=== PATIENT | female | born 2000 | race African-American/Black ===

== ENCOUNTER 2021-06-02 11:18 | Emergency (ER) | payer SELFPAY ==
[~2021-06-02] VITALS: Ht 165.1 cm; Wt 106.8 kg
[2021-06-02 12:19] VITALS: TEMP 98.6
[2021-06-02 12:58] LABS: COLLECTION METHOD CLEAN CATCH
[2021-06-02 13:14] LABS: MUCOUS Present (NOT PRESENT); SQUAMOUS EPITHELIAL 0-2 /hpf (0-10); URINE BACTERIA Rare /hpf (NONE SEEN)
[2021-06-02 13:18] LABS: URINE APPEARANCE Clear (CLEAR/HAZY); URINE COLOR Yellow (YELLOW)
[2021-06-02 13:19] LABS: PH 5 (5-8); URINE BILIRUBIN Negative (NEGATIVE); URINE BLOOD 1+ (NEGATIVE); URINE GLUCOSE Negative (NEGATIVE); URINE KETONE Negative (NEGATIVE); URINE LEUKOCYTE ESTERASE Negative (NEGATIVE); URINE NITRATE Negative (NEGATIVE); URINE PROTEIN(semi-quant) 1+ (NEGATIVE); URINE UROBILINOGEN Negative (NEGATIVE)
[2021-06-02 13:38] LABS: BASO % 0.2 % (0.0-2.0); EOS # 0.1 K/mm3 (0.0-0.7); EOS % 1.1 % (0.0-4.0); GRAN # 3.9 K/mm3 (1.4-6.5); GRAN % 74.7 % (42.2-75.2); HEMATOCRIT 41.9 % (37.0-47.0); HEMOGLOBIN 13.7 g/dl (12.5-16.0); LYMPH % 18.9 % (20.0-51.0); MEAN CELL VOLUME 91 fl (80.0-100.0); MEAN CORPUSCULAR HEMOGLOBIN 30 pg (27-31); MEAN CORPUSCULAR HGB CONC 33 g/dl (33.0-37.0); MEAN PLATELET VOLUME 10.8 fl (7.4-10.4); MONO # 0.3 K/mm3 (0.1-0.6); MONO % 4.7 % (1.7-9.3); PLATELET COUNT 326 K/mm3 (130-400); REDCELL DISTRIBUTION WIDTH-CV 11.7 % (11.5-14.5)
[2021-06-02 13:58] LABS: ALANINE AMINOTRANSFERASE 22 U/L (0-55); ALBUMIN 4.8 gm/dL (3.5-5.0); ALKALINE PHOSPHATASE 124 U/L (40-150); ANION GAP 9 mmol/L (7-16); AST,SGOT 19 U/L (5-34); BILIRUBIN,TOTAL < 0.5 mg/dL (0.2-1.2); BLOOD UREA NITROGEN 8 mg/dL (7-19); CALCIUM 9.6 mg/dL (8.4-10.2); CARBON DIOXIDE 21 mmol/L (22-29); CHLORIDE 107 mmol/L (98-107); CREATININE, serum 0.72 mg/dL (0.57-1.11); GLUCOSE 92 mg/dL (70-99); LIPASE 29 U/L (8-78); POTASSIUM 4.1 mmol/L (3.5-4.5); SODIUM 137 mmol/L (136-145); TOTAL PROTEIN 8.4 gm/dL (6.2-8.1)
[2021-06-02 13:59] LABS: C-REACTIVE PROTEIN < 0.02 mg/dL (0.00-0.50)
[2021-06-02] MEDS ORDERED: ZOFRAN ODT4 MG PO (15:29)
[2021-06-02 15:41] VITALS: BP 120/70; PULSE 58
== END 2021-06-02 15:41 | disposition home or self-care (01) ==
LOC: COL.ER 11:18
PROVIDERS: Emergency Medicine; Physician Assistant
DX: R10.31 Right lower quadrant pain (principal); R19.7 Diarrhea, unspecified; R11.2 Nausea with vomiting, unspecified; J45.909 Unspecified asthma, uncomplicated; F17.210 Nicotine dependence, cigarettes, uncomplicated; Z20.822 Contact with and (suspected) exposure to COVID-19; Z32.02 Encounter for pregnancy test, result negative
CPT/HCPCS: J2405; J7030; Q9967

== ENCOUNTER 2022-01-11 15:22 | Emergency (ER) | payer MEDICAID ==
[~2022-01-11] VITALS: Ht 165.1 cm; Wt 94.1 kg
[~2022-01-11 15:22] MED LIST: ZOFRAN ODT4 MG PO
[2022-01-11 15:27] VITALS: TEMP 98.1
[2022-01-11 15:49] LABS: BASO % 0.2 % (0.0-2.0); EOS # 0.2 K/mm3 (0.0-0.7); EOS % 3.4 % (0.0-4.0); GRAN # 2.2 K/mm3 (1.4-6.5); GRAN % 46.4 % (42.2-75.2); HEMATOCRIT 38.6 % (37.0-47.0); LYMPH # 2.2 K/mm3 (1.2-3.4); LYMPH % 45.6 % (20.0-51.0); MEAN CELL VOLUME 89 fl (80.0-100.0); MEAN CORPUSCULAR HEMOGLOBIN 30 pg (27-31); MEAN CORPUSCULAR HGB CONC 34 g/dl (33.0-37.0); MEAN PLATELET VOLUME 9.9 fl (7.4-10.4); MONO # 0.2 K/mm3 (0.1-0.6); MONO % 4.4 % (1.7-9.3); PLATELET COUNT 288 K/mm3 (130-400); RED BLOOD COUNT 4.33 M/mm3 (4.10-5.30); REDCELL DISTRIBUTION WIDTH-CV 11.5 % (11.5-14.5); RETIC # 0.04 M/mm3 (0.02-0.16); RETIC % 0.8 % (0.5-3.52)
[2022-01-11 16:06] LABS: ALBUMIN 4.1 gm/dL (3.5-5.0); BILIRUBIN,TOTAL 0.5 mg/dL (0.2-1.2); CALCIUM 9.2 mg/dL (8.4-10.2); CREATININE, serum 0.73 mg/dL (0.57-1.11); POTASSIUM 3.6 mmol/L (3.5-4.5); TOTAL PROTEIN 7.8 gm/dL (6.2-8.1)
[2022-01-11 16:12] LABS: TROPONIN-I 0.014 ng/mL (0.00-0.033)
[2022-01-11 18:15] VITALS: BP 117/84; PULSE 80
== END 2022-01-11 18:20 | disposition home or self-care (01) ==
LOC: COL.ER 15:22
PROVIDERS: Nurse Practitioner
DX: R07.89 Other chest pain (principal)
CPT/HCPCS: J1200; Q9967

== ENCOUNTER 2022-07-17 11:40 | Emergency (ER) | payer MEDICAID ==
[~2022-07-17] VITALS: Ht 165.1 cm; Wt 102.0 kg
[2022-07-17 11:54] VITALS: TEMP 98.3
[2022-07-17 12:23] LABS: BASO % 0.2 % (0.0-2.0); EOS # 0.2 K/mm3 (0.0-0.7); EOS % 5.3 % (0.0-4.0); GRAN # 2.3 K/mm3 (1.4-6.5); GRAN % 52.4 % (42.2-75.2); HEMATOCRIT 39.7 % (37.0-47.0); HEMOGLOBIN 13.5 g/dl (12.5-16.0); LYMPH # 1.6 K/mm3 (1.2-3.4); LYMPH % 36.8 % (20.0-51.0); MEAN CELL VOLUME 89 fl (80.0-100.0); MEAN CORPUSCULAR HEMOGLOBIN 30 pg (27-31); MEAN CORPUSCULAR HGB CONC 34 g/dl (33.0-37.0); MEAN PLATELET VOLUME 10.3 fl (7.4-10.4); MONO # 0.2 K/mm3 (0.1-0.6); MONO % 5.3 % (1.7-9.3); PLATELET COUNT 301 K/mm3 (130-400); RED BLOOD COUNT 4.45 M/mm3 (4.10-5.30); REDCELL DISTRIBUTION WIDTH-CV 11.2 % (11.5-14.5)
[2022-07-17 12:39] LABS: ALBUMIN 4.3 gm/dL (3.5-5.0); BILIRUBIN,TOTAL 0.4 mg/dL (0.2-1.2); CALCIUM 9.1 mg/dL (8.4-10.2); CREATININE, serum 0.73 mg/dL (0.57-1.11); POTASSIUM 3.8 mmol/L (3.5-4.5)
[2022-07-17 13:39] LABS: COLLECTION METHOD CLEAN CATCH
[2022-07-17 13:55] LABS: MUCOUS Present (NOT PRESENT); URINE APPEARANCE Hazy (CLEAR/HAZY); URINE BACTERIA Rare /hpf (NONE SEEN); URINE BLOOD 2+ (NEGATIVE); URINE COLOR Yellow (YELLOW); URINE GLUCOSE Negative (NEGATIVE); URINE KETONE Negative (NEGATIVE); URINE NITRATE Negative (NEGATIVE); URINE PROTEIN(semi-quant) 1+ (NEGATIVE); URINE RBC 20-50 /hpf (0-2); URINE UROBILINOGEN 0.2 E.U/dL (0.2-1.0)
[2022-07-17] MEDS ORDERED: ZOFRAN ODT4 MG PO (14:08)
[2022-07-17 14:37] VITALS: BP 114/87; PULSE 80
[2022-07-17 14:51] LABS: CLOSTRIDIUM DIFF A/B NEG
== END 2022-07-17 14:37 | disposition home or self-care (01) ==
LOC: COL.ER 11:40
PROVIDERS: Physician Assistant
DX: R11.2 Nausea with vomiting, unspecified (principal); R19.7 Diarrhea, unspecified; Z28.310 Unvaccinated for COVID-19
CPT/HCPCS: J2405; J7030

== ENCOUNTER 2023-02-12 19:34 | Emergency (ER) | payer MEDICAID ==
[~2023-02-12] VITALS: Ht 165.1 cm; Wt 90.9 kg
[~2023-02-12 19:34] MED LIST changes: +PRENATAL TABLET PO
[2023-02-12 19:39] VITALS: TEMP 98.4
[2023-02-12 20:26] LABS: BASO % 0.2 % (0.0-2.0); EOS # 0.1 K/mm3 (0.0-0.7); EOS % 1.4 % (0.0-4.0); GRAN # 4.7 K/mm3 (1.4-6.5); GRAN % 72.5 % (42.2-75.2); HEMOGLOBIN 11.4 g/dl (12.5-16.0); LYMPH # 1.4 K/mm3 (1.2-3.4); MEAN CELL VOLUME 93 fl (80.0-100.0); MEAN CORPUSCULAR HEMOGLOBIN 32 pg (27-31); MEAN CORPUSCULAR HGB CONC 34 g/dl (33.0-37.0); MEAN PLATELET VOLUME 10.9 fl (7.4-10.4); MONO # 0.3 K/mm3 (0.1-0.6); MONO % 4.6 % (1.7-9.3); PLATELET COUNT 289 K/mm3 (130-400); REDCELL DISTRIBUTION WIDTH-CV 12.1 % (11.5-14.5)
[2023-02-12 20:30] LABS: HEMATOCRIT 33.3 % (37.0-47.0)
[2023-02-12 20:41] LABS: ALBUMIN 3.7 gm/dL (3.5-5.0); BILIRUBIN,TOTAL 0.4 mg/dL (0.2-1.2); CALCIUM 9.4 mg/dL (8.4-10.2); CREATININE, serum 0.64 mg/dL (0.57-1.11); POTASSIUM 3.7 mmol/L (3.5-4.5); TOTAL PROTEIN 7.6 gm/dL (6.2-8.1)
[2023-02-12 21:03] LABS: COLLECTION METHOD CLEAN CATCH
[2023-02-12 21:08] LABS: URINE APPEARANCE Cloudy (CLEAR/HAZY); URINE COLOR Yellow (YELLOW)
[2023-02-12 21:09] LABS: URINE BLOOD Negative (NEGATIVE); URINE GLUCOSE Negative (NEGATIVE); URINE KETONE 4+ (NEGATIVE); URINE NITRATE Negative (NEGATIVE); URINE PROTEIN(semi-quant) TRACE (NEGATIVE)
[2023-02-12 21:13] LABS: AMORPHOUS CRYSTAL Present (NOT PRESENT)
[2023-02-12 21:14] LABS: MUCOUS Present (NOT PRESENT); URINE BACTERIA Moderate /hpf (NONE SEEN); URINE RBC None Seen /hpf (0-2)
[2023-02-12] MEDS ORDERED: VANTIN 200200 MG/TAB PO (21:23)
[2023-02-12 21:43] VITALS: BP 103/66; PULSE 95
== END 2023-02-12 21:43 | disposition home or self-care (01) ==
LOC: COL.ER 19:34
PROVIDERS: Emergency Medicine
DX: O21.2 Late vomiting of pregnancy (principal); O23.42 Unspecified infection of urinary tract in pregnancy, second trimester; N39.0 Urinary tract infection, site not specified; Z3A.21 21 weeks gestation of pregnancy; Z88.0 Allergy status to penicillin; Z91.040 Latex allergy status
CPT/HCPCS: J2405; J7121

== ENCOUNTER 2023-06-08 23:03 | Inpatient (IN) | payer MEDICAID ==
[~2023-06-08] VITALS: Ht 165.1 cm; Wt 103.2 kg
[~2023-06-08 23:03] MED LIST changes: +VANTIN 200200 MG/TAB PO
[2023-06-08] MEDS ORDERED: LR 1,000 ML IV PRN (23:15)
--- NOTE | 2023-06-08 23:15 | NUR ---
PATIENT TO UNIT VIA WHEELCHAIR. PATIENT STATES HER "CONTRACTIONS STARTED AROUND 1999 AND HAVE BEEN ABOUT 5 MINUTES APART". DENIES LEAKING OF FLUID OR VAGINAL BLEEDING. PATIENT CHANGED INTO HOSPITAL GOWN. [id number].
[2023-06-09] VITALS (34 sets, daily range): BP systolic 100–125; BP diastolic 60–83; PULSE 75–952; TEMP 98.1–98.6
[2023-06-09 00:23] LABS: TRICYCLIC ANTIDEPRESS URINE NEGATIVE (NEGATIVE)
[2023-06-09] MEDS ORDERED: LR 1,000 ML IV SCH (00:45)
[2023-06-09 00:56] LABS: EOS % 0.8 % (0.0-4.0); GRAN # 3.9 K/mm3 (1.4-6.5); GRAN % 77.3 % (42.2-75.2); HEMOGLOBIN 11.1 g/dl (12.5-16.0); LYMPH # 0.7 K/mm3 (1.2-3.4); LYMPH % 14.6 % (20.0-51.0); MEAN CELL VOLUME 92 fl (80.0-100.0); MEAN CORPUSCULAR HEMOGLOBIN 32 pg (27-31); MEAN CORPUSCULAR HGB CONC 34 g/dl (33.0-37.0); MEAN PLATELET VOLUME 10.2 fl (7.4-10.4); MONO # 0.4 K/mm3 (0.1-0.6); MONO % 7.1 % (1.7-9.3); PLATELET COUNT 272 K/mm3 (130-400); RED BLOOD COUNT 3.51 M/mm3 (4.10-5.30)
[2023-06-09 00:59] LABS: HEMATOCRIT 32.4 % (37.0-47.0)
--- NOTE | 2023-06-09 03:15 | NUR ---
0247- PATIENT AMBULATORY IN THE HALLWAY 0313- PATIENT RETURNED TO ROOM 0315- DR. GRAF AT BEDSIDE. SVE /3. EDUCATED PATIENT THAT SHE HADN'T MADE CHANGE SINCE 29 SVE. TALKED ABOUT POSSIBLY DISHCARGING BUT PATIENT REQUESTED TO STAY AND CONTINUE TO BE MONITORED DUE TO HISTORY OF LABORS IN THE PAST. DR. GRAF AGREED TO CONTINUE TO MONITOR PATIENT'S CONTRACTIONS AND BABY.
[2023-06-09] MEDS ORDERED: LR & Oxytocin 500 ML IV SCH (07:45)
--- NOTE | 2023-06-09 08:12 | NUR ---
DR LOPEZ AT BEDSIDE ASKING PT ABOUT HX OF CHLAMYDIA IN NOVEMBER AND IF IT HAD BEEN TREATED. PT CONFIRMED IT HAD BEEN TREATED AT THE HEALTH DEPARTMENT, BUT COULD NOT BE SURE IF SHE HAD BEEN RECHECKED AFTER. TOLD DR LOPEZ SHE WOULD BE OKAY GETTING CHECKED FOR CHLAMYDIA AGAIN TODAY IF NEEDED. DR LOPEZ TOLD PT THAT SINCE SHE HAD BEEN ON VANCO, THE RESULTS MAY NOT BE ACCURATE AT THIS POINT. PT SVE /-2. AROM AT 0814, LARGE AMOUNT OF CLEAR FLUID NOTED.
--- NOTE | 2023-06-09 08:50 | NUR ---
[id number] PT OFF MONITORS IN RESTROOM FOR GI URGENCY. ATTEMPTED TO PLACE BACK ON THE MONITORS BUT WAS UNABLE TO TRACE ON Modular Patterns BALL BEFORE URGENCY STRUCK AGAIN. NO FHT OR CX TRACING DURING THIS TIME.
[2023-06-09] MEDS ORDERED: ROPivacaine PF 0.2% 200 ML IV ONE (09:16)
--- NOTE | 2023-06-09 09:29 | NUR ---
0854- PT REQUESTED EPIDURAL. [facility] CALLED. 0915- [facility] ON UNIT AND READY FOR PT. PT WAS IN THE RESTROOM. 0920- PT SITTING ON SIDE OF BED. O2 AND BP MONITORS ON. [facility] AT BEDSIDE. 09- SINGLE SHOT. PT REPOSITIONED TO LAYING. PT TOLERATED PROCEEDURE WELL.
[2023-06-09] MEDS ORDERED: diphenhydrAMINE 25 MG CAP PO PRN (09:30)
[2023-06-09] MEDS ORDERED: ePHEDrine 50 MG/10 ML VIAL IV PRN (09:30)
[2023-06-09] MEDS ORDERED: diphenhydrAMINE 50 MG/ML 1 ML VIAL IV PRN (09:30)
[2023-06-09] MEDS ORDERED: Naloxone 0.4 MG/ML VIAL IV PRN ×2 (09:30→10:30)
[2023-06-09] MEDS ORDERED: Ondansetron 4 MG/2 ML VIAL IV PRN (09:30)
--- NOTE | 2023-06-09 09:53 | NUR ---
PT ROLLED OVER ON TO HER LEFT SIDE. AT THIS POINT WE COULD NO LONGER TRACE FHT. WOULD HEAR HEART TONES OOCATINALLY, BUT NOT CONTINUOUSLY SO PT WAS ASKED TO RETURN TO LAYING MORE ON HER BACL THAN HER LEFT. FOUND FHT QUICKLY AFTER PT MOVED TOWARDS HER BACK.
[2023-06-09] MEDS ORDERED: Loratadine 10 MG TAB PO PRN (10:30)
[2023-06-09] MEDS ORDERED: oxyCODONE 5 MG TAB PO PRN (10:30)
[2023-06-09] MEDS ORDERED: Mag/Al Hydrox/Simeth Susp 30 ML CUP PO PRN (10:30)
[2023-06-09] MEDS ORDERED: Acetaminophen 500 MG TAB PO PRN (10:30)
[2023-06-09] MEDS ORDERED: Magnes Hydrox (MOM) 80 MG/ML 30 ML CUP PO PRN (10:30)
[2023-06-09] MEDS ORDERED: Measles/Mumps/Rubella Virus Vaccine Live w Diluent 0.5 ML VIAL SQ SCH (10:30)
[2023-06-09] MEDS ORDERED: Witch Hazel 50% Pads Bulk TUB TP PRN (10:30)
[2023-06-09] MEDS ORDERED: Phenylephrine/Mineral Oil/Petrolatum 57 GM TUBE RC PRN (10:30)
[2023-06-09] MEDS ORDERED: Ibuprofen 800 MG TAB PO SCH (10:30)
--- NOTE | 2023-06-09 10:40 | NUR ---
1020- VAGINAL SWAB FOR FOLLOW UP TO POSITIVE CHLAMYDIA CULTURE DONE. BRADLEY PLACED. SVE . DR LOPEZ ON UNIT, NOTIFIED OF PT STATUS. 1025- PT CALLED OUT AND ASKED TO BE RECHECKED DUE TO FEELING LOTS OF PRESSURE. 1027- PT COMPLETE. 1030- DR LOPEZ NOTIFIED OF PT STATUS. DR LOPEZ ASKED TO SHUT OFF THE PITOCIN. PITOCIN TURNED OFF. 1033- DR LOPEZ AT BEDSIDE TO ASSESS PT. 1038- PT BEGAIN PUSHING. 1040- SPONTAINEOUS VAGINAL DELIVERY OF A VIABLE BABY BOY. LOOSE NUCHEL X1, EASILY REMOVED BY DR LOPEZ. BABY WAS PLACED ON MOM'S ABDOMIN AND CORD WAS CUT BY DOCTOR LOPEZ. CARE OF BABY WAS TAKEN OVER BY NURSERY NURSE ARIEL. DR LOPEZ REPAIRED A SMALL LABIAL LACERATION. 1045- SPONTANEOUS DELIVERY OF THE PLACENTA BY DR LOPEZ. PITOCIN STARTED PER POLICY. EPIDURAL SHUT OFF. BLEEDING WNL. VS STABLE. PT REPOSITIONED AND COMFORTABLE. QBL [address] LOPEZ.
--- NOTE | 2023-06-09 16:58 | NUR ---
PT REFFERAL TO PHOTOGRAPHIC PROCESS SCREEN MAKER DUE TO FAMILY DYNAMICS. PT DOES NOT HAVE A CAR FOR TRANSPORTAION. SHE AND HER CHILDREN LIVE WITH HER GRANDMOTHER, WHO HELPS CARE FOR THEM.
[2023-06-09] MEDS ORDERED: Sennosides/Docusate 8.6-50 MG TAB PO SCH (17:00)
--- NOTE | 2023-06-09 20:15 | NUR ---
REPORT FROM ALYX EDMONDSON. MID-SHIFT CHANGE OF CARE AT THIS TIME.
[2023-06-09] MEDS ORDERED: traZODone 50 MG TAB PO PRN (21:00)
--- NOTE | 2023-06-10 02:08 | NUR ---
PT IS SLEEPING AT THIS TIME. REQUEST TO NOT WAKE HER UP TO ASK ABOUT PAIN MANAGEMENT. SHE STATES SHE WILL TAKE PRN TYLENOL WHEN SHE WAKES UP, BUT FOR THE SCHEDULED MOTRIN WE CAN WAKE HER UP. BABY IS IN THE NURSERY. NO OTHER CONCERNS.
[2023-06-10 07:15] VITALS: BP 113/78; PULSE 76; TEMP 98
[2023-06-10] MEDS ORDERED: IBU800 M1 PO (08:40)
[2023-06-10] MEDS ORDERED: TYLENOL 500MG500 MG PO (08:40)
--- NOTE | 2023-06-10 09:41 | NUR ---
Initial visit; Patient thanked Auto Electrician for offering congratulations and God's blessings for the of her son. Auto Electrician thanked patient for choosing [facility].
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
--- NOTE | 2023-06-12 11:00 | NUR ---
Baby's cord blood results came back negative for all substances.
== END 2023-06-10 17:00 | disposition home or self-care (01) | DRG 807 ==
LOC: LDRO 23:03 → LDR 23:10 → LDRO 06-09 00:36 → LDR 06-09 00:37 → OB 06-09 00:37
PROVIDERS: Obstetrics & Gynecology; ADMIT Obstetrics & Gynecology
PROC: 10E0XZZ Delivery of Products of Conception, External Approach (ICD-10-PCS; principal; 2023-06-09)
PROC: 3E033VJ Introduction of Other Hormone into Peripheral Vein, Percutaneous Approach (ICD-10-PCS; 2023-06-09)
PROC: 10907ZC Drainage of Amniotic Fluid, Therapeutic from Products of Conception, Via Natural or Artificial Opening (ICD-10-PCS; 2023-06-09)
PROC: 0UQMXZZ Repair Vulva, External Approach (ICD-10-PCS; 2023-06-09)
DX: O24.420 Gestational diabetes mellitus in childbirth, diet controlled (principal); Z37.0 Single live birth; O99.824 Streptococcus B carrier state complicating childbirth; Z3A.37 37 weeks gestation of pregnancy; O99.344 Other mental disorders complicating childbirth; F31.9 Bipolar disorder, unspecified; O99.02 Anemia complicating childbirth; D57.40 Sickle-cell thalassemia without crisis; O69.81X0 Labor and delivery complicated by cord around neck, without compression, not applicable or unspecified; O99.214 Obesity complicating childbirth; O70.0 First degree perineal laceration during delivery; Z88.0 Allergy status to penicillin; Z88.8 Allergy status to other drugs, medicaments and biological substances; Z91.040 Latex allergy status; Z23 Encounter for immunization
CPT/HCPCS: OP; J2795; J3370; J7050; J7120

== ENCOUNTER 2024-01-10 14:11 | Emergency (ER) | payer MEDICAID ==
[~2024-01-10] VITALS: Ht 165.1 cm; Wt 93.2 kg
[~2024-01-10 14:11] MED LIST changes: +FLAGYL500 MG PO; +IBU800 M1 PO; +TYLENOL 500MG500 MG PO
[2024-01-10 14:18] VITALS: TEMP 98.3
[2024-01-10 14:59] LABS: COLLECTION METHOD CLEAN CATCH
[2024-01-10 15:02] LABS: BASO % 0.4 % (0.0-2.0); EOS # 0.1 K/mm3 (0.0-0.7); EOS % 2.5 % (0.0-4.0); GRAN % 54.7 % (42.2-75.2); HEMATOCRIT 37.8 % (37.0-47.0); HEMOGLOBIN 12.6 g/dl (12.5-16.0); LYMPH % 36.8 % (20.0-51.0); MEAN CELL VOLUME 94 fl (80.0-100.0); MEAN CORPUSCULAR HEMOGLOBIN 31 pg (27-31); MEAN CORPUSCULAR HGB CONC 33 g/dl (33.0-37.0); MEAN PLATELET VOLUME 10.6 fl (7.4-10.4); MONO # 0.3 K/mm3 (0.1-0.6); MONO % 5.4 % (1.7-9.3); PLATELET COUNT 290 K/mm3 (130-400); RED BLOOD COUNT 4.03 M/mm3 (4.10-5.30); REDCELL DISTRIBUTION WIDTH-CV 11.9 % (11.5-14.5)
[2024-01-10 15:08] LABS: PH 6.5 (5.0-8.5); URINE APPEARANCE CLEAR (CLEAR/HAZY); URINE BLOOD 1+ (NEGATIVE); URINE COLOR YELLOW (YELLOW); URINE GLUCOSE NEGATIVE (NEGATIVE); URINE KETONE NEGATIVE (NEGATIVE); URINE NITRATE NEGATIVE (NEGATIVE); URINE PROTEIN(semi-quant) NEGATIVE (NEGATIVE)
[2024-01-10 15:26] LABS: BILIRUBIN,TOTAL 0.2 mg/dL (0.2-1.2); CALCIUM 8.9 mg/dL (8.4-10.2); CREATININE, serum 0.71 mg/dL (0.57-1.11); POTASSIUM 3.9 mEq/L (3.5-4.5); TOTAL PROTEIN 7.6 g/dl (6.2-8.1)
[2024-01-10 16:15] VITALS: BP 112/87; PULSE 67
== END 2024-01-10 16:15 | disposition home or self-care (01) ==
LOC: COL.ER 14:11
PROVIDERS: Nurse Practitioner
DX: O20.9 Hemorrhage in early pregnancy, unspecified (principal); Z3A.00 Weeks of gestation of pregnancy not specified